=== PATIENT | male | born 1955 | race African-American/Black ===

== ENCOUNTER 2017-04-05 19:56 | Emergency (ER) | payer OTHER, MEDICARE ==
[~2017-04-05] VITALS: Ht 167.6 cm; Wt 81.7 kg
[~2017-04-05 19:56] MED LIST: GABAPENTIN 100100 MG PO; HYDROCHLOROTH12.5 M1 PO; LISINOPRIL10 MG; METFORMIN HCL500 MG PO
[2017-04-05] MEDS ORDERED: HYDROCODONE-AP1 EAC6 PO (20:38)
[2017-04-05] MEDS ORDERED: KEFLEX500 M1 PO (20:39)
[2017-04-05 21:00] VITALS: BP 131/71
== END 2017-04-05 21:01 | disposition home or self-care (01) ==
LOC: M.ERS 19:56
DX: M79.672 Pain in left foot (principal); T81.4XXA Infection following a procedure, initial encounter; F17.210 Nicotine dependence, cigarettes, uncomplicated; I10 Essential (primary) hypertension; R23.4 Changes in skin texture; M19.90 Unspecified osteoarthritis, unspecified site; E11.9 Type 2 diabetes mellitus without complications; Z88.8 Allergy status to other drugs, medicaments and biological substances